=== PATIENT | female | born 1970 | race African-American/Black ===

== ENCOUNTER 2016-07-07 15:54 | Emergency (ER) | payer OTHER ==
[~2016-07-07] VITALS: Ht 180.3 cm; Wt 93.4 kg
[~2016-07-07 15:54] MED LIST: AMOX-430 PO; FLUO40CA8 PO; HYDR1TAB4 PO; METH5TAB6 PO
[2016-07-07] MEDS ORDERED: HYDROCODONE/APAP 5/325MG 1 EACH TABLET ONE (17:07)
[2016-07-07] MEDS: HYDROCODONE/APAP 5/325MG 1 EACH TABLET PO ONE (17:10)
[2016-07-07 17:18] VITALS: BP 112/62
== END 2016-07-07 17:19 | disposition home or self-care (01) ==
LOC: ER 15:56
DX: M25.562 Pain in left knee (principal); G89.29 Other chronic pain; E03.9 Hypothyroidism, unspecified; M19.90 Unspecified osteoarthritis, unspecified site; I10 Essential (primary) hypertension; F17.200 Nicotine dependence, unspecified, uncomplicated; F41.9 Anxiety disorder, unspecified; F31.9 Bipolar disorder, unspecified; Z90.49 Acquired absence of other specified parts of digestive tract; Z88.8 Allergy status to other drugs, medicaments and biological substances; Z87.442 Personal history of urinary calculi
CPT/HCPCS: 99283; A4606; Z7610

== ENCOUNTER 2016-11-03 20:54 | Emergency (ER) | payer OTHER ==
[~2016-11-03] VITALS: Ht 149.9 cm; Wt 89.8 kg
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
--- NOTE | 2016-11-03 22:37 | NUR ---
SPOKE WITH [employer]AY CONTR[employer]LLER [id number] WITH [employer] NON EMERGENCY DISPATCH INCIDENT NO [id number]
[2016-11-03] MEDS ORDERED: diphenhydrAMINE HCL ELIX 25 MG/10 ML UDC ONE (23:31)
[2016-11-03] MEDS ORDERED: TDAP [DIPH/PERTUSSIS/TET] 0.5 ML VIAL IM ONE (23:33)
--- NOTE | 2016-11-03 23:45 | NUR ---
PT REC'D MEDICATION ORDERED.
--- NOTE | 2016-11-03 23:45 | NUR ---
Patient discharged to home in stable condition. Written and verbal after care instructions given. Patient verbalizes understanding of instruction. PT AMBULATED OUT WITH A STEADY GAIT. VSS.
--- NOTE | 2016-11-03 23:46 | NUR ---
PT IS GOING TO LOBBY TO WAIT FOR [employer].
[2016-11-03 23:51] VITALS: BP 149/84
[2016-11-04] MEDS ORDERED: DIPHENHYDRAMINE HCL 12.5 MG/5 ML UDC PO ONE
[2016-11-04] MEDS ORDERED: TDAP [DIPH/PERTUSSIS/TET] 0.5 ML VIAL IM ONE
== END 2016-11-03 23:51 | disposition home or self-care (01) ==
LOC: ER 20:57
DX: S40.812A Abrasion of left upper arm, initial encounter (principal); E03.9 Hypothyroidism, unspecified; I10 Essential (primary) hypertension; Z23 Encounter for immunization; F17.210 Nicotine dependence, cigarettes, uncomplicated; Z88.1 Allergy status to other antibiotic agents; Z88.8 Allergy status to other drugs, medicaments and biological substances; W50.4XXA Accidental scratch by another person, initial encounter; Y93.89 Activity, other specified; Y92.89 Other specified places as the place of occurrence of the external cause; Y99.8 Other external cause status
CPT/HCPCS: 90471; 90715; 99283; A4606; Q0163; Z7610

== ENCOUNTER 2016-12-12 18:03 | Emergency (ER) | payer OTHER ==
[~2016-12-12] VITALS: Ht 149.9 cm; Wt 93.0 kg
[2016-12-12 18:05] VITALS: BP 107/84
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
== END 2016-12-12 19:18 | disposition home or self-care (01) ==
LOC: ER 18:07
DX: Z13.89 Encounter for screening for other disorder (principal); E03.9 Hypothyroidism, unspecified; F41.9 Anxiety disorder, unspecified; I10 Essential (primary) hypertension; F17.200 Nicotine dependence, unspecified, uncomplicated; F31.9 Bipolar disorder, unspecified; Z88.1 Allergy status to other antibiotic agents; Z88.8 Allergy status to other drugs, medicaments and biological substances; W25.XXXA Contact with sharp glass, initial encounter; Y93.E1 Activity, personal bathing and showering; Y92.89 Other specified places as the place of occurrence of the external cause; Y99.8 Other external cause status
CPT/HCPCS: A4606; Z7610

== ENCOUNTER 2017-04-03 03:17 | Emergency (ER) | payer MEDICAID, OTHER ==
[~2017-04-03] VITALS: Ht 149.9 cm; Wt 90.7 kg
--- NOTE | 2017-04-03 03:24 | NUR ---
Pt BIB [facility], reports pt highly anxious. Pt c/o SOB, started about 2 hours COW TESTER after coughing uncontrollably for 1 hour. LS clear on left, crackles on right. Pt denies CP, dizziness, n/v, no other complaints, no distress noted, however pt appears very anxious.
[2017-04-03 03:25] VITALS: BP 115/74
[2017-04-03] MEDS ORDERED: ONDANSETRON HCL/PF 4 MG/2 ML VIAL ONE (03:43)
[2017-04-03] MEDS ORDERED: ONDANSETRON HCL/PF 4 MG/2 ML VIAL IM ONE (04:00)
[2017-04-03] MEDS ORDERED: ALBUTEROL FS 2.5 MG/0.5 ML VIAL.NEB NEB ONE (04:00)
[2017-04-03] MEDS ORDERED: ALBUTEROL FS 2.5 MG/0.5 ML VIAL.NEB ONE (04:02)
== END 2017-04-03 04:45 | disposition home or self-care (01) ==
LOC: ER 03:18
DX: F41.9 Anxiety disorder, unspecified (principal); R05 Cough; E03.9 Hypothyroidism, unspecified; I10 Essential (primary) hypertension; F31.9 Bipolar disorder, unspecified; F17.200 Nicotine dependence, unspecified, uncomplicated; Z88.8 Allergy status to other drugs, medicaments and biological substances; Z90.49 Acquired absence of other specified parts of digestive tract
CPT/HCPCS: 71010; 94640; 96372; 99284; A4606; J2405; Z7610

== ENCOUNTER 2017-06-29 12:53 | Emergency (ER) | payer OTHER ==
[~2017-06-29] VITALS: Ht 149.9 cm; Wt 90.7 kg
[2017-06-29 13:52] VITALS: BP 131/80
== END 2017-06-29 14:59 | disposition left against medical advice (07) ==
LOC: ER 12:56
DX: Z53.21 Procedure and treatment not carried out due to patient leaving prior to being seen by health care provider (principal)
CPT/HCPCS: A4606; Z7610

== ENCOUNTER 2018-06-10 16:02 | Emergency (ER) | payer OTHER ==
[~2018-06-10] VITALS: Ht 147.3 cm; Wt 92.5 kg
--- NOTE | 2018-06-10 16:20 | NUR ---
PT C/O UTI SYMPTOMS WITH VAGINAL DISCHARGE AND ITHCING. PT IN BED 16 WITH NAD NOTED. AOX4. WILL CONTINUE TO MONITOR.
[2018-06-10 17:02] LABS: APPEARANCE,URINE Turbid (CLEAR); BILIRUBIN,URINE SMALL (NEGATIVE); BLOOD, URINE Negative Ery/uL (NEGATIVE); COLOR,URINE Yellow (YELLOW); KETONES,URINE Trace (NEGATIVE); LEUKOCYTE ESTERASE ,URINE Small (NEGATIVE); NITRITE, URINE Negative (NEGATIVE); PROTEIN,URINE 30 mg/dl (NEGATIVE); UGLUCOSE Negative (NEGATIVE)
[2018-06-10 17:10] LABS: BACTERIA,URINE 2+ /HPF (None Seen); RBC,URINE 0-2 /HPF (0-2); WBC,URINE 51-80 /HPF (0-3)
[2018-06-10 17:11] LABS: MUCUS,URINE Many /LPF (None Seen); SQUAMOUS EPITHELIAL CELL,UR Many /HPF (None Seen)
[2018-06-10 17:55] VITALS: BP 129/72
--- NOTE | 2018-06-10 18:11 | NUR ---
Patient discharged to home in stable condition. Written and verbal after care instructions given. Patient verbalizes understanding of instruction.
== END 2018-06-10 18:14 | disposition home or self-care (01) ==
LOC: ER 16:04
DX: B37.49 Other urogenital candidiasis (principal); I10 Essential (primary) hypertension; E03.9 Hypothyroidism, unspecified; F41.9 Anxiety disorder, unspecified; F31.9 Bipolar disorder, unspecified; F17.200 Nicotine dependence, unspecified, uncomplicated; Z90.49 Acquired absence of other specified parts of digestive tract; Z98.890 Other specified postprocedural states; Z88.8 Allergy status to other drugs, medicaments and biological substances; Z79.899 Other long term (current) drug therapy
CPT/HCPCS: 81000-TC; 84703-TC; 87086-TC; 87186-TC; 87210-TC; 87491; 87591; A4606; A6402

== ENCOUNTER 2018-08-18 16:43 | Emergency (ER) | payer OTHER ==
[~2018-08-18] VITALS: Ht 149.9 cm; Wt 95.3 kg
--- NOTE | 2018-08-18 17:04 | NUR ---
BIB SELF W C/O EYE IRRITATION AND PAIN X 2-3 DAYS. PT ALSO C/O ANXIETY REQUESTING KLONOPIN. TO ER BED 4, HOOKED TO MONITOR, AWAITING MD HOOD
--- NOTE | 2018-08-18 17:25 | NUR ---
DR FAROOQ AT BEDSIDE
[2018-08-18] MEDS ORDERED: PROPARACAINE HCL OPHTH 15 ML BOTTLE ONE (17:29)
[2018-08-18] MEDS ORDERED: TETRACAINE HCL/PF 0.5% UD 2 ML BOTTLE EACHEYE ONE (17:30)
[2018-08-18] MEDS ORDERED: TONO PEN in ED SUPPLY ONICELL 1 EA MC ONE (17:30)
--- NOTE | 2018-08-18 17:30 | NUR ---
RECEIVED VERBAL ORDER OF PROPARACAINE OPHTHALMIC SOLUTION, ONE DROP EACH EYE, FROM DR FAROOQ
[2018-08-18] MEDS ORDERED: TETRACAINE HCL/PF 0.5% UD 2 ML BOTTLE ONE (17:37)
--- NOTE | 2018-08-18 18:05 | NUR ---
Patient discharged to home in stable condition. Written and verbal after care instructions given. Patient verbalizes understanding of instruction.
[2018-08-18 18:06] VITALS: BP 113/62
== END 2018-08-18 18:07 | disposition home or self-care (01) ==
LOC: ER 16:47
DX: F41.9 Anxiety disorder, unspecified (principal); H57.13 Ocular pain, bilateral; H57.89 Other specified disorders of eye and adnexa; G89.29 Other chronic pain; E03.9 Hypothyroidism, unspecified; F31.9 Bipolar disorder, unspecified; F17.200 Nicotine dependence, unspecified, uncomplicated; I10 Essential (primary) hypertension; Z98.890 Other specified postprocedural states; Z90.49 Acquired absence of other specified parts of digestive tract; Z88.1 Allergy status to other antibiotic agents; Z88.8 Allergy status to other drugs, medicaments and biological substances

== ENCOUNTER 2018-09-29 14:29 | Emergency (ER) | payer OTHER ==
[~2018-09-29] VITALS: Ht 149.9 cm; Wt 91.7 kg
--- NOTE | 2018-09-29 14:55 | NUR ---
CAME IN FOR L&R EYE IRRIRATION, DISCOMFORT AND L EYE REDNESS. ON AND OFF x 1 MONTH. TO ER BED 4, HOOKED TO MONITOR, AWAITING MD HOOD.
--- NOTE | 2018-09-29 15:05 | NUR ---
LIVE CARSON AT BEDSIDE
--- NOTE | 2018-09-29 16:25 | NUR ---
LIVE CARSON AT BEDSIDE
--- NOTE | 2018-09-29 16:56 | NUR ---
Patient discharged to home in stable condition. Written and verbal after care instructions given. Patient verbalizes understanding of instruction.
[2018-09-29 16:59] VITALS: BP 121/70
== END 2018-09-29 17:00 | disposition home or self-care (01) ==
LOC: ER 14:30
DX: H10.13 Acute atopic conjunctivitis, bilateral (principal); F31.9 Bipolar disorder, unspecified; F41.9 Anxiety disorder, unspecified; E03.9 Hypothyroidism, unspecified; F17.200 Nicotine dependence, unspecified, uncomplicated; Z98.890 Other specified postprocedural states; Z90.49 Acquired absence of other specified parts of digestive tract; Z88.8 Allergy status to other drugs, medicaments and biological substances

== ENCOUNTER 2018-12-23 20:12 | Emergency (ER) | payer OTHER ==
[~2018-12-23] VITALS: Ht 149.9 cm; Wt 90.7 kg
[2018-12-23 20:14] VITALS: BP 151/84
[2018-12-23] MEDS ORDERED: TETRACAINE HCL/PF 0.5% UD 2 ML BOTTLE ONE (20:39)
[2018-12-23] MEDS ORDERED: TETRACAINE HCL/PF 0.5% UD 2 ML BOTTLE EACHEYE ONE (21:00)
--- NOTE | 2018-12-23 21:32 | NUR ---
OFFERED PT TO REST IN ROOM WITH LIGHTS OFF UNTIL EYES FELT BETTER. PT AGREED TO BE DISCHARGED TO LOBBY.
== END 2018-12-23 21:48 | disposition home or self-care (01) ==
LOC: ER 20:17
DX: H10.213 Acute toxic conjunctivitis, bilateral (principal); F41.9 Anxiety disorder, unspecified; F31.9 Bipolar disorder, unspecified; E03.9 Hypothyroidism, unspecified; F17.200 Nicotine dependence, unspecified, uncomplicated; Z98.890 Other specified postprocedural states; Z90.49 Acquired absence of other specified parts of digestive tract; Z88.1 Allergy status to other antibiotic agents; Z88.8 Allergy status to other drugs, medicaments and biological substances
CPT/HCPCS: 99283; A4217

== ENCOUNTER 2018-12-24 15:31 | Emergency (ER) | payer OTHER ==
[~2018-12-24] VITALS: Ht 149.9 cm; Wt 90.7 kg
[2018-12-24 15:31] VITALS: BP 101/62
[2018-12-24] MEDS ORDERED: FLUORESCEIN SODIUM OPHTH 1 EA STRIP ONE (15:59)
[2018-12-24] MEDS ORDERED: TETRACAINE HCL/PF 0.5% UD 2 ML BOTTLE ONE (15:59)
[2018-12-24] MEDS ORDERED: TETRACAINE HCL/PF 0.5% UD 2 ML BOTTLE EACHEYE ONE (16:00)
[2018-12-24] MEDS ORDERED: FLUORESCEIN SODIUM OPHTH 1 EA STRIP OP ONE (16:00)
== END 2018-12-24 17:28 | disposition home or self-care (01) ==
LOC: ER 15:37
DX: S05.02XA Injury of conjunctiva and corneal abrasion without foreign body, left eye, initial encounter (principal); S05.01XA Injury of conjunctiva and corneal abrasion without foreign body, right eye, initial encounter; F41.9 Anxiety disorder, unspecified; F31.9 Bipolar disorder, unspecified; E03.9 Hypothyroidism, unspecified; F17.200 Nicotine dependence, unspecified, uncomplicated; Z90.49 Acquired absence of other specified parts of digestive tract; Z98.890 Other specified postprocedural states; Z88.1 Allergy status to other antibiotic agents; Z88.8 Allergy status to other drugs, medicaments and biological substances; X58.XXXA Exposure to other specified factors, initial encounter; Y93.89 Activity, other specified; Y92.89 Other specified places as the place of occurrence of the external cause; Y99.8 Other external cause status

== ENCOUNTER 2019-04-05 02:07 | Emergency (ER) | payer OTHER ==
[~2019-04-05] VITALS: Ht 149.9 cm; Wt 93.0 kg
[2019-04-05 02:16] VITALS: BP 149/76
--- NOTE | 2019-04-05 02:26 | NUR ---
AT BEDSIDE FOR EVAL.
[2019-04-05] MEDS ORDERED: HYDROCODONE/APAP 5/325MG 1 EACH TABLET PO ONE (02:30)
[2019-04-05] MEDS ORDERED: HYDROCODONE/APAP 5/325MG 1 EACH TABLET ONE (02:34)
--- NOTE | 2019-04-05 03:00 | NUR ---
PT IS WHEELED TO RADIOLOGY FOR XRAY.
--- NOTE | 2019-04-05 03:59 | NUR ---
Patient discharged to home in stable condition. Written and verbal after care instructions given. Patient verbalizes understanding of instruction.
--- NOTE | 2019-04-05 03:59 | NUR ---
CRUTCHES PROVIDED. TEACHING DONE
== END 2019-04-05 04:01 | disposition home or self-care (01) ==
LOC: ER 02:07
DX: S33.5XXA Sprain of ligaments of lumbar spine, initial encounter (principal); S80.02XA Contusion of left knee, initial encounter; S80.01XA Contusion of right knee, initial encounter; F31.9 Bipolar disorder, unspecified; F41.9 Anxiety disorder, unspecified; E03.9 Hypothyroidism, unspecified; F17.200 Nicotine dependence, unspecified, uncomplicated; Z90.49 Acquired absence of other specified parts of digestive tract; Z98.890 Other specified postprocedural states; Z88.8 Allergy status to other drugs, medicaments and biological substances; Z79.899 Other long term (current) drug therapy; W18.39XA Other fall on same level, initial encounter; Y93.89 Activity, other specified; Y92.89 Other specified places as the place of occurrence of the external cause; Y99.8 Other external cause status
CPT/HCPCS: 72100-TC; 73564-TC; 73590-TC

== ENCOUNTER 2021-01-27 13:03 | Emergency (ER) | payer OTHER ==
[~2021-01-27] VITALS: Ht 149.9 cm; Wt 93.0 kg
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
--- NOTE | 2021-01-27 14:25 | NUR ---
DR MONAE AT BEDSIDE
[2021-01-27] MEDS ORDERED: ONDANSETRON 4 MG TAB.RAPDIS SL ONE (14:30)
[2021-01-27] MEDS ORDERED: HYDROCODONE/APAP 5/325MG TABLET PO ONE (14:30)
[2021-01-27] MEDS ORDERED: ONDANSETRON 4 MG TAB.RAPDIS ONE (14:35)
[2021-01-27] MEDS ORDERED: HYDROCODONE/APAP 5/325MG TABLET ONE (14:35)
--- NOTE | 2021-01-27 14:39 | NUR ---
TAKEN TO CT
--- NOTE | 2021-01-27 15:00 | NUR ---
BACK FROM CT
[2021-01-27 15:25] VITALS: BP 124/62
[2021-01-27] MEDS ORDERED: DICL50TA7 PO (15:56)
== END 2021-01-27 16:04 | disposition home or self-care (01) ==
LOC: ER 13:13
DX: M54.2 Cervicalgia (principal); M54.6 Pain in thoracic spine; M54.5 Low back pain; F41.9 Anxiety disorder, unspecified; E03.9 Hypothyroidism, unspecified; F31.9 Bipolar disorder, unspecified; F17.200 Nicotine dependence, unspecified, uncomplicated; Z98.890 Other specified postprocedural states; Z90.49 Acquired absence of other specified parts of digestive tract; Z88.8 Allergy status to other drugs, medicaments and biological substances; Z79.899 Other long term (current) drug therapy; V49.69XA Unspecified car occupant injured in collision with other motor vehicles in traffic accident, initial encounter; Y93.89 Activity, other specified; Y92.413 State road as the place of occurrence of the external cause; Y99.8 Other external cause status
CPT/HCPCS: 72070-TC; 72100-TC; 72125-TC; Q0162

== ENCOUNTER 2021-05-12 14:57 | Emergency (ER) | payer SELFPAY ==
[~2021-05-12] VITALS: Ht 149.9 cm; Wt 93.0 kg
[~2021-05-12 14:57] MED LIST changes: +DICL50TA7 PO
--- NOTE | 2021-05-12 16:05 | NUR ---
BIB for R knee pain 8/10 pain scale. No apparent deformity noted. Will continue to monitor the patient.
--- NOTE | 2021-05-12 16:07 | NUR ---
Dr Black at for eval.
[2021-05-12] MEDS ORDERED: IBUPROFEN 400 MG TABLET ONE (16:14)
[2021-05-12] MEDS ORDERED: IBUPROFEN 400 MG TABLET PO ONE (16:30)
[2021-05-12] MEDS ORDERED: IBUP-1957 PO (17:11)
[2021-05-12 17:14] VITALS: BP 115/73
--- NOTE | 2021-05-12 17:14 | NUR ---
Patient discharged to home in stable condition. Written and verbal after care instructions given. Patient verbalizes understanding of instruction.
== END 2021-05-12 17:15 | disposition home or self-care (01) ==
LOC: ER 15:00
DX: S80.01XA Contusion of right knee, initial encounter (principal); F31.9 Bipolar disorder, unspecified; F41.9 Anxiety disorder, unspecified; E03.9 Hypothyroidism, unspecified; F17.200 Nicotine dependence, unspecified, uncomplicated; Z98.890 Other specified postprocedural states; Z90.49 Acquired absence of other specified parts of digestive tract; Z88.8 Allergy status to other drugs, medicaments and biological substances; Z79.899 Other long term (current) drug therapy; W19.XXXA Unspecified fall, initial encounter; Y93.89 Activity, other specified; Y92.89 Other specified places as the place of occurrence of the external cause; Y99.8 Other external cause status
CPT/HCPCS: 73564-TC

== ENCOUNTER 2021-12-05 17:23 | Emergency (ER) | payer MEDICAID, OTHER ==
[~2021-12-05] VITALS: Ht 149.9 cm; Wt 83.9 kg
[~2021-12-05 17:23] MED LIST changes: +IBUP-1957 PO
[2021-12-05 17:43] VITALS: BP 99/63
--- NOTE | 2021-12-05 17:55 | NUR ---
BIBS FOR C/O BILATERAL KNEE PAIN 10/10 ,MORE ON THE LEFT AFTER WALKING FOR AN HOUR AT THE BILATERAL KNEE PAIN,MORE ON THE LEFT AFTER WALKING FOR AN HOUR AT THE. WILL CONTINUE TO MONITOR THE PATIENT.
--- NOTE | 2021-12-05 18:02 | NUR ---
DOG HANDLER OR TRAINER AT BEDSIDE FOR XRAY
[2021-12-05] MEDS ORDERED: ACET-2605 PO ×2 (18:41→18:50)
[2021-12-05] MEDS ORDERED: NAPR-1009 PO ×2 (18:41→18:50)
--- NOTE | 2021-12-05 19:03 | NUR ---
Patient discharged to home in stable condition. Written and verbal after care instructions given. Patient verbalizes understanding of instruction.
== END 2021-12-05 19:04 | disposition home or self-care (01) ==
LOC: ER 17:35
DX: M25.562 Pain in left knee (principal); M25.561 Pain in right knee; F31.9 Bipolar disorder, unspecified; F41.9 Anxiety disorder, unspecified; E03.9 Hypothyroidism, unspecified; F17.200 Nicotine dependence, unspecified, uncomplicated; Z90.49 Acquired absence of other specified parts of digestive tract; Z88.8 Allergy status to other drugs, medicaments and biological substances; Z79.899 Other long term (current) drug therapy
CPT/HCPCS: 73564-TC

== ENCOUNTER 2024-08-23 15:01 | Emergency (ER) | payer OTHER ==
[~2024-08-23] VITALS: Ht 149.9 cm; Wt 99.8 kg
[~2024-08-23 15:01] MED LIST changes: +ACET-2605 PO; +NAPR-1009 PO
[2024-08-23 15:12] VITALS: BP 135/83; TEMP 97.9
[2024-08-23] MEDS ORDERED: KETOROLAC TROMETHAMINE 15 MG/ML VIAL ONE (15:47)
[2024-08-23] MEDS: KETOROLAC TROMETHAMINE 15 MG/ML VIAL IM ONE (15:58)
[2024-08-23 16:49] VITALS: O2SAT 98
== END 2024-08-23 16:50 | disposition home or self-care (01) ==
LOC: ER 15:10
DX: M54.2 Cervicalgia (principal); M79.621 Pain in right upper arm; E03.9 Hypothyroidism, unspecified; F17.200 Nicotine dependence, unspecified, uncomplicated; F41.9 Anxiety disorder, unspecified; Z79.1 Long term (current) use of non-steroidal anti-inflammatories (NSAID); Z79.899 Other long term (current) drug therapy; Z88.1 Allergy status to other antibiotic agents; Z90.49 Acquired absence of other specified parts of digestive tract; V43.62XA Car passenger injured in collision with other type car in traffic accident, initial encounter; Y93.89 Activity, other specified; Y92.488 Other paved roadways as the place of occurrence of the external cause; Y99.8 Other external cause status
CPT/HCPCS: 99283; 96372; 73060; J1885

== ENCOUNTER 2025-03-18 16:29 | Emergency (ER) | payer OTHER ==
[~2025-03-18] VITALS: Ht 152.4 cm; Wt 100.7 kg
[2025-03-18] MEDS ORDERED: ONDANSETRON HCL/PF 4 MG/2 ML VIAL ONE (17:13)
[2025-03-18] MEDS ORDERED: FAMOTIDINE/PF INJ 20 MG/2 ML VIAL IV ONE (17:13)
[2025-03-18] MEDS ORDERED: ACETAMINOPHEN ES 500 MG TABLET ONE (17:13)
[2025-03-18] MEDS: IV NS 0.9% 1,000 ML BAG IV ONE (17:31)
[2025-03-18] MEDS: FAMOTIDINE/PF INJ 20 MG/2 ML VIAL IV ONE (17:31)
[2025-03-18] MEDS: ACETAMINOPHEN ES 500 MG TABLET PO ONE (17:31)
[2025-03-18] MEDS: ONDANSETRON HCL/PF 4 MG/2 ML VIAL IVP ONE (17:31)
[2025-03-18 17:40] LABS: PLATELET COUNT (AUTO) 435 K/uL (150-450); RED BLOOD CELL COUNT(AUTO) 4.52 MIL/uL (4.0-5.2); RED CELL DISTRIBUTION WIDTH 15.4 % (11.5-15.0); WHITE BLOOD COUNT (AUTO) 7.4 K/uL (4.3-11.0)
[2025-03-18 17:48] LABS: CALCIUM, SERUM 8.6 mg/dL (8.5-10.1); CREATININE 1.0 mg/dL (0.6-1.3); SODIUM SERUM 139 mmol/L (136-145); UREA NITROGEN, BLOOD 11 mg/dL (7-18)
[2025-03-18 17:49] LABS: INR 0.96 (0.91-1.10)
[2025-03-18 17:52] LABS: ASPARTATE AMINOTRANSFERASE 20 U/L (15-37); TOTAL PROTEIN, SERUM 7.8 g/dL (6.4-8.2)
[2025-03-18 18:42] LABS: APPEARANCE,URINE CLEAR (CLEAR); BLOOD, URINE Negative Ery/uL (NEGATIVE); LEUKOCYTE ESTERASE ,URINE Small (NEGATIVE); NITRITE, URINE NEGATIVE (NEGATIVE); PREGNANCY TEST URINE QUAL NEGATIVE (NEGATIVE); UGLUCOSE Negative (NEGATIVE)
[2025-03-18 18:45] LABS: ADD URINE CULTURE YES; SQUAMOUS EPITHELIAL CELL,UR Few /HPF (None Seen)
[2025-03-18] MEDS ORDERED: KETOROLAC TROMETHAMINE INJ 30 MG/ML VIAL ONE (19:59)
[2025-03-18] MEDS ORDERED: CEPHALEXIN MONOHYDRATE 500 MG CAPSULE PO ONE (20:00)
[2025-03-18] MEDS ORDERED: CEPH-570 PO (20:07)
[2025-03-18] MEDS ORDERED: IBUP-1955 PO (20:07)
[2025-03-18] MEDS: CEPHALEXIN MONOHYDRATE 500 MG CAPSULE PO ONE (20:08)
[2025-03-18] MEDS: KETOROLAC TROMETHAMINE INJ 30 MG/ML VIAL IV ONE (20:33)
[2025-03-18 22:10] VITALS: BP 112/70; TEMP 98.2; O2SAT 99
[2025-03-19] MEDS ORDERED: CEPH-570 PO (15:18)
[2025-03-19] MEDS ORDERED: IBUP-1955 PO (15:18)
== END 2025-03-18 22:11 | disposition home or self-care (01) ==
LOC: ER 16:31
DX: R10.A2 Flank pain, left side (principal); R11.0 Nausea; R82.81 Pyuria; R91.1 Solitary pulmonary nodule; E03.9 Hypothyroidism, unspecified; E27.8 Other specified disorders of adrenal gland; F17.200 Nicotine dependence, unspecified, uncomplicated; F31.9 Bipolar disorder, unspecified; F41.9 Anxiety disorder, unspecified; F42.9 Obsessive-compulsive disorder, unspecified; R07.9 Chest pain, unspecified; Z79.1 Long term (current) use of non-steroidal anti-inflammatories (NSAID); Z79.899 Other long term (current) drug therapy; Z87.442 Personal history of urinary calculi; Z88.1 Allergy status to other antibiotic agents; Z90.49 Acquired absence of other specified parts of digestive tract; Z87.19 Personal history of other diseases of the digestive system
CPT/HCPCS: 99285; 74176; 96374; 96375; 71045; 96361; 93005; 85025; 80048; 87086; 80076; 81001; 36415; 84484; 85730; 84703 ×2; J1885; J1308; J2405; J7030